=== PATIENT | male | born 1970 | race Native Hawaiian/Other Pacific Islander ===

== ENCOUNTER 2020-03-26 06:08 | Emergency (ER) | payer SELFPAY ==
[2020-03-26] MEDS ORDERED: SODIUM CHLORIDE 0.9% 1000 ML 1,000 ML IV ONE ×2 (06:42→08:51)
[2020-03-26 07:07] LABS: Basophils % (Auto) 0.5 % (0.0-1.8); Eosinophils # (Auto) 0.2 K/mm3 (0.0-0.4); Eosinophils % (Auto) 2.8 % (0.0-4.3); Hematocrit 45.5 % (35.5-45.6); Hemoglobin 15.6 gm/dl (11.8-15.2); Lymphocytes # (Auto) 2.2 K/mm3 (1.2-5.4); Lymphocytes % (Auto) 28.8 % (13.4-35.0); Mean Corpuscular HGB Conc 34 % (32-34); Mean Corpuscular Volume 85 fl (84-94); Monocytes # (Auto) 0.5 K/mm3 (0.0-0.8); Monocytes % (Auto) 6.4 % (0.0-7.3); Platelet Count 171 K/mm3 (140-440); Red Blood Count 5.33 M/mm3 (3.65-5.03)
--- NOTE | 2020-03-26 07:07 | Emergency Department Report ---
ED General Adult HPI - General Chief complaint: Medical Clearance Stated complaint: INGESTION OF BREAK FLUID Source: patient, family Mode of arrival: Ambulatory Limitations: Language Barrier - History of Present Illness Initial comments: 50-year-old man with no previous mental health issues. He is largely [place]- speaking. I have obtained the history in [place]. He tells me that he put brake fluid in a water bottle and accidentally drank probably 1 to 2 ounces. He stated he vomited there after. He presented to the emergency department for evaluation thereof. The ingestion occurred at approximately 4:45 this a.m. He is not reporting any ongoing symptoms. He specifically denies a history or current depression or any mental health issues at all. He does not take any current medication. I have discussed the patient's case with [facility]. They do not recommend obtaining an ethylene glycol level at this juncture. The ingestion is considered to be likely nonsignificant. Their recommendation is to do basic blood work and reevaluate. They do not recommend fomepizole at this time. -: Gradual Associated Symptoms: denies other symptoms - Related Data Previous Rx's Medication Instructions Recorded Last Taken Type metFORMIN [Glucophage] 500 mg PO BID #60 tablet 03/26/20 Unknown Rx Allergies Allergy/AdvReac Type Severity Reaction Status Date / Time No Known Allergies Allergy Unverified 03/26/20 06:13 ED Review of Systems ROS: Stated complaint: INGESTION OF BREAK FLUID Other details as noted in HPI Comment: All other systems reviewed and negative ED Past Medical Hx - Past Medical History Previous Medical History?: No - Surgical History Past Surgical History?: No - Social History Smoking Status: Never Smoker Substance Use Type: None - Medications Home Medications: Home Medications Medication Instructions Recorded Confirmed Last Taken Type metFORMIN [Glucophage] 500 mg PO BID #60 tablet 03/26/20 Unknown Rx ED Physical Exam - General Limitations: No Limitations General appearance: alert, in no apparent distress - Head Head exam: Present: atraumatic, normocephalic - Eye Eye exam: Present: normal appearance. Absent: scleral icterus - ENT ENT exam: Present: mucous membranes moist - Neck Neck exam: Present: normal inspection - Respiratory Respiratory exam: Present: normal lung sounds bilaterally. Absent: respiratory distress - Cardiovascular Cardiovascular Exam: Present: regular rate, normal rhythm. Absent: systolic murmur, diastolic murmur, rubs, gallop - GI/Abdominal GI/Abdominal exam: Present: soft, normal bowel sounds. Absent: distended, tenderness, guarding, rebound - Rectal Rectal exam: Present: deferred - Extremities Exam Extremities exam: Present: normal inspection - Back Exam Back exam: Present: normal inspection - Neurological Exam Neurological exam: Present: alert, oriented X3, CN II-XII intact. Absent: motor sensory deficit - Psychiatric Psychiatric exam: Present: normal affect, normal mood - Skin Skin exam: Present: warm, dry, intact, normal color. Absent: rash ED Course Vital Signs 03/26/20 03/26/20 03/26/20 06:13 06:41 07:00 Temperature 97.4 F L Pulse Rate 76 73 74 Respiratory 18 20 20 Rate Blood Pressure 146/92 127/86 Blood Pressure 134/90 [Right] O2 Sat by Pulse 100 97 95 Oximetry 03/26/20 03/26/20 03/26/20 07:30 08:00 09:00 Temperature Pulse Rate 78 75 72 Respiratory 25 H 20 20 Rate Blood Pressure 131/91 128/83 128/88 Blood Pressure [Right] O2 Sat by Pulse 98 98 98 Oximetry 03/26/20 03/26/20 09:30 10:00 Temperature Pulse Rate 79 81 Respiratory 18 19 Rate Blood Pressure 124/85 127/91 Blood Pressure [Right] O2 Sat by Pulse 97 98 Oximetry - Reevaluation(s) Reevaluation #1: Patient was given fluids and a small dose of IV insulin. He states he has never been told he was diabetic. This is an incidental finding. He be placed on Metformin and referred to a local primary care clinic. He is EEG ingestion is apparently nontoxic. 03/26/20 10:31 ED Medical Decision Making - Lab Data Result diagrams: 03/26/20 06:56 03/26/20 06:56 Laboratory Results - last 24 hr 03/26/20 03/26/20 03/26/20 06:56 06:56 06:56 WBC 7.7 RBC 5.33 H Hgb 15.6 H Hct 45.5 MCV 85 MCH 29 MCHC 34 RDW 13.0 L Plt Count 171 Lymph % (Auto) 28.8 [place] % (Auto) 6.4 Eos % (Auto) 2.8 Baso % (Auto) 0.5 Lymph # (Auto) 2.2 [place] # (Auto) 0.5 Eos # (Auto) 0.2 Baso # (Auto) 0.0 Seg Neutrophils % 61.5 Seg Neutrophils # 4.7 PT INR APTT VBG pH Sodium Potassium Chloride Carbon Dioxide Anion Gap BUN Creatinine Estimated GFR BUN/Creatinine Ratio Glucose POC Glucose Ketones Quantitative Osmolality 312 Calcium Phosphorus Magnesium Total Bilirubin Direct Bilirubin Indirect Bilirubin AST ALT Alkaline Phosphatase Total Creatine Kinase CK-MB (CK-2) CK-MB (CK-2) Rel Index NT-Pro-B Natriuret Pep Total Protein Albumin Albumin/Globulin Ratio Salicylates Acetaminophen Plasma/Serum Alcohol < 0.01 03/26/20 03/26/20 03/26/20 06:56 06:56 06:56 WBC RBC Hgb Hct MCV MCH MCHC RDW Plt Count Lymph % (Auto) [place] % (Auto) Eos % (Auto) Baso % (Auto) Lymph # (Auto) [place] # (Auto) Eos # (Auto) Baso # (Auto) Seg Neutrophils % Seg Neutrophils # PT 13.2 INR 1.01 APTT 21.1 L VBG pH Sodium 134 L Potassium 4.1 Chloride TNR Carbon Dioxide 25 Anion Gap 15 BUN 15 Creatinine 0.7 L Estimated GFR > 60 BUN/Creatinine Ratio 21 Glucose 420 H POC Glucose Ketones Quantitative Osmolality Calcium 9.2 Phosphorus 3.80 Magnesium 2.00 Total Bilirubin 0.40 Direct Bilirubin < 0.2 Indirect Bilirubin 0.2 AST 20 ALT 33 Alkaline Phosphatase 183 H Total Creatine Kinase 57 CK-MB (CK-2) 1.2 CK-MB (CK-2) Rel Index 2.1 NT-Pro-B Natriuret Pep 17.95 Total Protein 7.5 Albumin 4.3 Albumin/Globulin Ratio 1.3 Salicylates < 0.3 L Acetaminophen Plasma/Serum Alcohol 03/26/20 03/26/20 03/26/20 06:56 06:56 06:56 WBC RBC Hgb Hct MCV MCH MCHC RDW Plt Count Lymph % (Auto) [place] % (Auto) Eos % (Auto) Baso % (Auto) Lymph # (Auto) [place] # (Auto) Eos # (Auto) Baso # (Auto) Seg Neutrophils % Seg Neutrophils # PT INR APTT VBG pH 7.312 L Sodium Potassium Chloride Carbon Dioxide Anion Gap BUN Creatinine Estimated GFR BUN/Creatinine Ratio Glucose POC Glucose Ketones Quantitative Negative Osmolality Calcium Phosphorus Magnesium Total Bilirubin Direct Bilirubin Indirect Bilirubin AST ALT Alkaline Phosphatase Total Creatine Kinase CK-MB (CK-2) CK-MB (CK-2) Rel Index NT-Pro-B Natriuret Pep Total Protein Albumin Albumin/Globulin Ratio Salicylates Acetaminophen 5.0 L Plasma/Serum Alcohol 03/26/20 09:30 WBC RBC Hgb Hct MCV MCH MCHC RDW Plt Count Lymph % (Auto) [place] % (Auto) Eos % (Auto) Baso % (Auto) Lymph # (Auto) [place] # (Auto) Eos # (Auto) Baso # (Auto) Seg Neutrophils % Seg Neutrophils # PT INR APTT VBG pH Sodium Potassium Chloride Carbon Dioxide Anion Gap BUN Creatinine Estimated GFR BUN/Creatinine Ratio Glucose POC Glucose 308 H Ketones Quantitative Osmolality Calcium Phosphorus Magnesium Total Bilirubin Direct Bilirubin Indirect Bilirubin AST ALT Alkaline Phosphatase Total Creatine Kinase CK-MB (CK-2) CK-MB (CK-2) Rel Index NT-Pro-B Natriuret Pep Total Protein Albumin Albumin/Globulin Ratio Salicylates Acetaminophen Plasma/Serum Alcohol - EKG Data -: EKG Interpreted by Me EKG shows normal: sinus rhythm, axis, intervals, QRS complexes, ST-T waves Rate: normal - EKG Data Interpretation: no acute changes Critical care attestation.: If time is entered above; I have spent that time in minutes in the direct care of this critically ill patient, excluding procedure time. 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 You may require insulin in the future. Follow-up care at [facility]. Rx as directed. Prescriptions: metFORMIN [Glucophage] 500 mg PO BID #60 tablet Referrals: PRIMARY CARE, [Primary Care Provider] - 3-5 Days [facility] [Provider Group] - 2-3 Days Time of Disposition: 10:33
[2020-03-26 07:17] LABS: INR 1.01 (0.87-1.13)
[2020-03-26 07:18] LABS: Partial Thromboplastin Time 21.1 Sec. (24.2-36.6)
[2020-03-26 07:25] LABS: Creatine Kinase MB 1.2 ng/mL (0.0-4.0)
[2020-03-26 07:28] LABS: Alanine Aminotransferase 33 units/L (7-56); Albumin 4.3 g/dL (3.9-5); Blood Urea Nitrogen 15 mg/dL (9-20); Calcium 9.2 mg/dL (8.4-10.2); Hemolysis Index 5
--- NOTE | 2020-03-26 07:40 | XRay Report ---
CHEST 1 VIEW INDICATION: Ingestion of brake fluid. Vomiting.. COMPARISON: None. FINDINGS: Support devices: None. Heart: Normal. Lungs/Pleura: No acute pulmonary or pleural findings. IMPRESSION: 1. No acute findings. Signer Name: Gene Polanco MD Signed: 03/26/2020 7:36 AM Workstation Name: [id number]
[2020-03-26 07:48] LABS: BUN/Creatinine Ratio 21; Bilirubin,Direct < 0.2 mg/dL (0-0.2)
[2020-03-26] MEDS ORDERED: INSULIN REGULAR, HUMAN 100 UNIT/ML 3ML VIAL IV ONE (09:33)
[2020-03-26 11:03] VITALS: BP 122/84
== END 2020-03-26 11:04 | disposition home or self-care (01) ==
LOC: ED 06:08
DX: E11.65 Type 2 diabetes mellitus with hyperglycemia (principal); T59.891A Toxic effect of other specified gases, fumes and vapors, accidental (unintentional), initial encounter; Z79.899 Other long term (current) drug therapy
CPT/HCPCS: 36415; 71045; 80048; 80076; 82010; 82550; 82553; 82805; 82962; 83735; 83880; 83930; 84100; 85025; 85610; 85730; 93005; 96361; 96374; 99284; J7030; 80320; G0480; J1815